=== PATIENT | female | born 1950 | race Caucasian/White ===

== ENCOUNTER → 2017-01-18 | Outpatient (CLI) | payer MEDICARE, OTHER ==
--- NOTE | 2017-01-18 15:40 | Diagnostic Imaging Report ---
Three views of the lumbar spine. INDICATION: Back pain. FINDINGS: There is satisfactory alignment of the lumbar spine. The vertebral body heights are preserved. There is moderate disc height loss and vacuum phenomenon seen at L4-L5 and L5-L6 levels. SI joints appear symmetric. There is mild right convexity curvature of the lumbar spine seen. There are multilevel anterior osteophytes. No significant posterior osteophyte is demonstrated. The paraspinal soft tissues appear grossly unremarkable. IMPRESSION: Mild right convexity scoliosis. Disc degenerative changes most prominent in the lower lumbar spine. Dictated by: Dictated on workstation # [id number]
== END ==
LOC: RAD 09:56
PROVIDERS: ATTEND Family Medicine
DX: M47.816 Spondylosis without myelopathy or radiculopathy, lumbar region (principal); M41.9 Scoliosis, unspecified
CPT/HCPCS: 72100

== ENCOUNTER → 2017-01-22 | Outpatient (CLI) | payer MEDICARE, OTHER ==
--- NOTE | 2017-01-22 17:29 | Diagnostic Imaging Report ---
Bilateral screening mammogram. The current study was also evaluated with a Computer Aided Detection (CAD) system. INDICATION: Screening. No current complaints stated on the questionnaire. COMPARISON: 01/19/16. FINDINGS: The breasts are composed of heterogeneously dense parenchyma which may decrease mammographic sensitivity. There are scattered punctate calcifications seen. Allowing for technique and positional differences, no suspicious change is seen. IMPRESSION: No significant change. ACR BI-RADS Category 2: Benign findings. Result letter will be mailed to the patient. Note: At least 10% of breast cancer is not imaged by mammography. Dictated by: Dictated on workstation # [id number]
== END ==
LOC: RAD 09:50
PROVIDERS: ATTEND Family Medicine
DX: Z12.31 Encounter for screening mammogram for malignant neoplasm of breast (principal)
CPT/HCPCS: 77067

== ENCOUNTER → 2018-07-11 | Outpatient (CLI) | payer MEDICARE, OTHER ==
--- NOTE | 2018-07-11 13:00 | Diagnostic Imaging Report ---
Indication: Routine screening. Comparison is made with prior mammogram from 01/22/2017 and 01/19/2016. 2-D and 3-D bilateral screening mammography was performed with CAD. Both breasts are heterogeneously dense, limiting the sensitivity of mammography. There is an area of questionable nodularity and architectural distortion in the lateral left breast on the CC view posterior depth. This is best seen on tomographic image 35 on the CC. Additional views are recommended. There are benign calcifications bilaterally. No malignant-appearing microcalcifications are seen. The axillae are unremarkable. Impression: BI-RADS 0 Left breast density. Additional views are recommended for further evaluation. ACR BI-RADS Category 0: Incomplete. (Needs additional imaging evaluation). Result letter will be mailed to the patient. Note: At least 10% of breast cancer is not imaged by mammography. Dictated by: Dictated on workstation # [id number]
== END ==
LOC: RAD 10:37
PROVIDERS: ATTEND Family Medicine
DX: Z12.31 Encounter for screening mammogram for malignant neoplasm of breast (principal); R92.8 Other abnormal and inconclusive findings on diagnostic imaging of breast
CPT/HCPCS: 77067

== ENCOUNTER → 2018-07-18 | Outpatient (CLI) | payer MEDICARE, OTHER ==
--- NOTE | 2018-07-18 19:04 | Diagnostic Imaging Report ---
INDICATION: Abnormal mammogram. EXAMINATION: Limited left breast ultrasound. FINDINGS: The screening mammogram performed on 07/11/2018 raised the question of a nodule with architectural distortion in the lateral aspect of the left breast. The diagnostic mammogram performed prior to this study failed to show any sign of malignancy. On this exam, there is no discrete solid or cystic mass noted. There is no shadowing to suggest malignancy either. It may be that the density seen on the mammogram was related to fibroglandular tissue alone. Even so, the fact that there did seem to be some architectural distortion in this area on the additional mammographic images is worrisome for an occult malignancy. I would recommend that MRI of the breast be performed for a more sensitive evaluation of the breast tissue for malignancy. IMPRESSION: 1. There is no evidence for malignancy. However, MRI would be recommended for further evaluation. 2. These results were discussed with Dr. Damon Denise. ACR BI-RADS Category 0: Incomplete. (Needs additional imaging evaluation). Result letter will be mailed to the patient. Note: At least 10% of breast cancer is not imaged by mammography. Dictated by: Dictated on workstation # [id number]
--- NOTE | 2018-07-18 19:11 | Diagnostic Imaging Report ---
INDICATION: Abnormal screening mammogram. EXAMINATION: Unilateral Left breast digital diagnostic mammogram with CAD. The current study was also evaluated with a Computer Aided Detection (CAD) system. FINDINGS: The screening mammogram performed on 07/11/2018 raised the question of a nodular density with architectural distortion in the superior lateral aspect of the left breast. The compression/magnification views of this area show no definite underlying abnormality. It may be that the nodular density in question is secondary to fibroglandular tissue alone. Even so, there still seems to be some architectural distortion in this area. Ultrasound would be recommended for further evaluation. IMPRESSION: There is no evidence for malignancy. Even so, ultrasound would be recommended for further evaluation. ACR BI-RADS Category 0: Incomplete. (Needs additional imaging evaluation). Result letter will be mailed to the patient. Note: At least 10% of breast cancer is not imaged by mammography. Dictated by: Dictated on workstation # [id number]
== END ==
LOC: RAD 12:42
PROVIDERS: ATTEND Family Medicine
DX: Z12.31 Encounter for screening mammogram for malignant neoplasm of breast (principal); R92.2 Inconclusive mammogram
CPT/HCPCS: 76642

== ENCOUNTER → 2018-07-24 | Outpatient (CLI) | payer MEDICARE, OTHER ==
[~2018-07-24] MED LIST: GADOBUTROL 10 MMOL/10 ML (GADAVIST) VIAL IV ONE
--- NOTE | 2018-07-25 19:25 | Diagnostic Imaging Report ---
EXAMINATION: MRI breast bilateral w/wo contrast with 3D CAD TECHNIQUE: Utilizing 1.5 Amanda magnet, patient was placed in a prone position with 8-channel dual breast coil utilized. Axial STIR precontrasted image and axial T1 fat-sat postcontrast high-resolution images obtained. Axial T2-weighted images precontrast, bilaterally, as well. Axial vibrant temporal images were obtained pre and post contrast with bolus technique utilized of gadolinium. Images are postcontrast immediately and subsequently for 6 minutes. Pre and post contrasted images are then evaluated with CADstream for evaluation of possible angiogenesis. INDICATION: Problem solving MRI. Architectural distortion seen on recent screening mammogram, with negative subsequent diagnostic workup. COMPARISON: Screening mammogram performed on 07/11/2018 and diagnostic mammogram/ultrasound performed on 07/18/2018. FINDINGS: Right Breast: The parenchyma is composed of heterogeneous fibroglandular tissue. There is minimal background enhancement. There is no suspicious mass or non-mass enhancement. There is no axillary or internal mammary adenopathy. Left Breast: The parenchyma is composed of heterogeneous fibroglandular tissue. There is minimal background enhancement. There is a subtle oval mass with slightly irregular margins in the upper central to slightly outer breast at approximately 12 o'clock, 7 cm from the nipple. The mass measures 6 x 7 x 5 mm and is below threshold on kinetic enhancement analysis. There is no axillary or internal mammary adenopathy. IMPRESSION: Right Breast: No MR evidence of malignancy. Left Breast: Subtle oval enhancing mass with irregular margins in the slightly upper central to slightly outer breast at approximately 12 o'clock. This is felt to correlate with the previously questioned area of architectural distortion on mammogram. Although below threshold on kinetic analysis, this finding is concerning for malignancy. Given that the finding is best seen on tomosynthesis, and no sonographic correlate was previously found, a tomosynthesis stereotactic-guided biopsy is recommended for further evaluation. FINAL ASSESSMENT: BI-RADS ATLAS Category: 4 - Suspicious abnormality. Dictated by: Dictated on workstation # [id number]
== END ==
LOC: RAD 14:40
PROVIDERS: ATTEND Family Medicine
DX: N63.21 Unspecified lump in the left breast, upper outer quadrant (principal); N64.89 Other specified disorders of breast
CPT/HCPCS: 36415; 77059; 82565; 84520

== ENCOUNTER → 2018-08-02 | Outpatient (CLI) | payer MEDICARE, OTHER ==
[~2018-08-02] MED LIST changes: -GADOBUTROL 10 MMOL/10 ML (GADAVIST) VIAL IV ONE; +LIDOCAINE 1% INJ 20 ML 20 ML VIAL INJ ONE
--- NOTE | 2018-08-02 13:47 | Diagnostic Imaging Report ---
Indication: Left breast density. Patient underwent screening and diagnostic mammography on 07/11 and 07/18/2018. There was a questionable area of architectural distortion and density in the lateral portion of the left breast at posterior depth. No abnormality was seen by ultrasound. Patient underwent MRI which showed questionable enhancement in this area although enhancement kinetics were unremarkable. Patient presents today for stereotactic biopsy. Repeat unilateral left 2-D and 3-D mammography was performed in the CC projection. The area of the density and questionable architectural distortion previously noted is no longer appreciated. Since the lesion is not seen, patient cannot undergo stereotactic biopsy. Impression: Previously noted questionable density in the posterior and lateral left breast on CC view is not appreciated on today's study. Therefore, stereotactic biopsy was canceled. Findings were discussed with the patient. Patient will return in approximately 6 months for repeat left mammogram to confirm stability. ACR BI-RADS Category 3: Probably benign findings. Result letter will be mailed to the patient. Note: At least 10% of breast cancer is not imaged by mammography. Dictated by: Dictated on workstation # [id number]
== END ==
LOC: RAD 09:31
PROVIDERS: ATTEND Family Medicine
DX: R92.8 Other abnormal and inconclusive findings on diagnostic imaging of breast (principal); N63.20 Unspecified lump in the left breast, unspecified quadrant

== ENCOUNTER → 2019-08-27 | Outpatient (CLI) | payer MEDICARE, OTHER ==
[~2019-08-27] MED LIST changes: +BARIUM for suspension 96% w/w (Vanilla Silq Medium Density) PO ONE; +BARIUM for suspension 98% w/w (Vanilla Silq High Density) PO ONE; -LIDOCAINE 1% INJ 20 ML 20 ML VIAL INJ ONE
--- NOTE | 2019-08-27 09:21 | Diagnostic Imaging Report ---
INDICATION: Epigastric pain. TECHNIQUE: The patient ingested effervescent crystals as well as thin and thick barium and imaging of the esophagus, stomach, and proximal small bowel was performed. A total of 1 minute and 7 seconds of fluoroscopic time was utilized. FINDINGS: Occasional tertiary contractions throughout the esophagus are noted. No discrete mass or stricture is identified. There appears to be a very large hiatal hernia. Free flow of contrast into the stomach is seen. No definite gastroesophageal reflux is identified. The stomach has a normal configuration. The duodenal bulb is without deformity. The proximal small bowel loops are unremarkable. IMPRESSION: Large hiatal hernia. No other significant abnormality is detected. Dictated by: Dictated on workstation # [id number]
== END ==
LOC: RAD 07:59
PROVIDERS: ATTEND Family Medicine
DX: K44.9 Diaphragmatic hernia without obstruction or gangrene (principal)
CPT/HCPCS: 74241

== ENCOUNTER → 2019-08-28 | Outpatient (CLI) | payer MEDICARE, OTHER ==
--- NOTE | 2019-08-28 11:01 | Diagnostic Imaging Report ---
INDICATION: Left breast architectural distortion. Correlation is made with prior exam from 07/11/2018 and 01/22/2017. 2-D and 3-D bilateral diagnostic mammography was performed with CAD. Both breasts remain heterogeneously dense, limiting the sensitivity of mammography. The area of architectural distortion in the upper and outer aspect left breast at mid to posterior depth persists. Overall appearance is stable. No mass is identified. There are no suspicious microcalcifications. There are benign calcifications bilaterally. Axillae are unremarkable. IMPRESSION: BI-RADS Category 4 Persistent architectural distortion upper outer left breast at mid to posterior depth. Stereotactic biopsy was attempted previously however this area is not well visualized with stereotactic imaging. However, patient did have abnormal MRI at this location showing abnormal enhancement. MRI guided biopsy could be performed for further evaluation. If this is unsuccessful, consideration could be given to performance of a needle localization and excisional biopsy. ACR BI-RADS Category 4: Suspicious abnormality. Result letter will be mailed to the patient. Note: At least 10% of breast cancer is not imaged by mammography. Dictated by: Dictated on workstation # [id number]
== END ==
LOC: RAD 08:54
PROVIDERS: ATTEND Family Medicine
DX: R92.2 Inconclusive mammogram (principal)
CPT/HCPCS: 77066

== ENCOUNTER 2022-02-10 15:32 | Emergency (ER) | payer MEDICARE, OTHER ==
[~2022-02-10] VITALS: Ht 165 cm; Wt 70.0 kg
--- NOTE | 2022-02-10 15:54 | ED Upper Extremity ---
General Chief Complaint: Upper Extremity Stated Complaint: K ARM PAIN Nursing Triage Note: PT TO ED W/ C/O LT ARM PAIN ONSET AFTER MISSING THE LAST STEP ON A LADDER AT HOME ET FALLING. PT DENIES HITTING HEAD BUT REPORTS SHE LANDED ON THE FLOOR ON HER ARM. DENIES LOC. NO OTHER C/O VOICED Source: patient Exam Limitations: no limitations (RALPH TURK APRN) History of Present Illness Date Seen by Provider: February 10, 2022 Time Seen by Provider: 15:53 Initial Comments Fell at home after missing the last step on a ladder attempting to catch herself on an outstretched left arm. Now c/o left wrist, elbow, shoulder pain. Onset: just prior to arrival Severity: moderate Pain/Injury Location: left shoulder, left elbow, left wrist Method of Injury: fell Modifying Factors: Worse With Movement (RALPH TURK APRN) Allergies and Home Medications Allergies Coded Allergies: No Known Drug Allergies (Unverified , 07/24/18) Patient Home Medication List Home Medication List Reviewed: Yes (RALPH TURK APRN) Review of Systems Constitutional: see HPI EENTM: see HPI Respiratory: no symptoms reported Cardiovascular: no symptoms reported Genitourinary: no symptoms reported Musculoskeletal: see HPI Skin: no symptoms reported Psychiatric/Neurological: No Symptoms Reported (RALPH TURK APRN) Physical Exam Vital Signs Vital Signs - First Documented 02/10/22 02/10/22 15:38 17:34 Temp 37.2 Pulse 89 Resp 20 B/P (MAP) 144/99 (114) Pulse Ox 96 O2 Delivery Room Air (FISH CORDOVA DO) Vital Signs Capillary Refill : Less Than 3 Seconds (RALPH TURK APRN) Height, Weight, BMI Height: '" Weight: lbs. oz. kg; 25.00 BMI Method: General Appearance: WD/WN, no apparent distress Neck: non-tender, full range of motion Respiratory: no respiratory distress, no accessory muscle use Shoulder: normal inspection, non-tender Elbow/Forearm: Left, limited ROM, pain, soft tissue tenderness Wrist: Yes limited ROM, Yes pain, Yes soft tissue tenderness Hand: normal inspection, non-tender Neurologic/Psychiatric: alert, normal mood/affect, oriented x 3 Skin: normal color, warm/dry (RALPH TURK APRN) Progress/Results/Core Measures Results/Orders Blood Pressure Mean: 114 Departure Communication (Admissions) small left elbow effusion could represent occult elbow fx. will get CT. Given posterior long arm splint using 3 inch orthoglass and sling. (RALPH TURK APRN) Impression Primary Impression: Fracture, ulna, proximal Disposition: 01 HOME, SELF-CARE Condition: Stable Departure-Patient Inst. Decision time for Depature: 16:42 (RALPH TURK APRN) Referrals: VIOLETA COOK MD (PCP/Family) Primary Care Physician SAM ALEMAN MD, TERRY D MD ZAFUTA, MICHAEL P MD Patient Instructions: Elbow Fracture, Adult ED Add. Discharge Instructions: . Ice pack to the area. REturn to RE for any concerns. Keep the splint on at all times and wear the sling as well. Keep this dry. Follow up with orthopedics within the next 1-2 weeks. Call an orthopedic surgeon of your choosing on Sunday to make an appointment to be seen. All discharge instructions reviewed with patient and/or family. Voiced understanding. ATTENDING PHYSICIAN NOTE: I WAS PHYSICALLY PRESENT ER PHYSICIAN, BUT I WAS NOT INVOLVED IN ANY DECISION MAKING OR ANY CARE OF THIS PATIENT. (FISH CORDOVA DO) RALPH TURK APRN February 10, 2022 15:54 FISH CORDOVA DO February 11, 2022 06:12
--- NOTE | 2022-02-10 16:12 | Diagnostic Imaging Report ---
INDICATION: Fall with left wrist pain. FINDINGS: Three views. Radiocarpal joint shows good alignment. Articulating surfaces are smooth. Joint spaces are well maintained. No fractures. IMPRESSION: Normal left wrist. Dictated by: Dictated on workstation # [id number]
--- NOTE | 2022-02-10 16:14 | Diagnostic Imaging Report ---
INDICATION: Fall with left elbow pain. FINDINGS: Three views. The elbow shows good alignment of the radius and ulna. There is a small joint effusion noted. No definite fractures are seen. IMPRESSION: Small joint effusion with no definite cortical bony fractures demonstrated. Dictated by: Dictated on workstation # [id number]
--- NOTE | 2022-02-10 16:15 | Diagnostic Imaging Report ---
INDICATION: Left shoulder pain. FINDINGS: Three views. The glenohumeral joint and AC joint are in good alignment. Joint spaces are well maintained with smooth humeral head. No hypertrophic changes are seen. There are no fractures. No soft tissue calcifications about the shoulder. IMPRESSION: Normal left shoulder. Dictated by: Dictated on workstation # [id number]
--- NOTE | 2022-02-10 16:49 | Diagnostic Imaging Report ---
PROCEDURE: CT left upper extremity without contrast. TECHNIQUE: Multiple contiguous axial images were obtained through the left upper extremity without the use of intravenous contrast. Auto Exposure Controls were utilized during the CT exam to meet ALARA standards for radiation dose reduction. INDICATION: Left arm pain after trauma. Pain in the elbow. COMPARISON: Radiographs from the same day. FINDINGS: There is a minimally displaced fracture of the coronoid process of the ulna. There is a small avulsion fracture at the posterior aspect of the capitellum. There is a moderate elbow joint effusion. No other fractures are seen. No soft tissue fluid collections are seen. No radiopaque foreign body is identified. No focal muscular atrophy is seen. IMPRESSION: 1. Minimally displaced fracture of the coronoid process of the left ulna. 2. Displaced avulsion fracture at the posterior capitellum. Dictated by: Dictated on workstation # [id number]
[2022-02-10 17:34] VITALS: BP 144/99
== END 2022-02-10 17:36 | disposition home or self-care (01) ==
LOC: EDUNIT# 15:32 → ER 15:35
DX: S52.042A Displaced fracture of coronoid process of left ulna, initial encounter for closed fracture (principal); W11.XXXA Fall on and from ladder, initial encounter; Y92.009 Unspecified place in unspecified non-institutional (private) residence as the place of occurrence of the external cause
CPT/HCPCS: 29105; 73030; 73080; 73110; 73200

== ENCOUNTER 2023-04-16 13:10 | Emergency (ER) | payer MEDICARE, OTHER ==
[~2023-04-16] VITALS: Ht 165.1 cm; Wt 75.0 kg
--- NOTE | 2023-04-16 13:38 | ED Upper Extremity ---
General Chief Complaint: Upper Extremity Stated Complaint: FALL | LT ARM INJ Nursing Triage Note: PT AMB TO ED BY POV WITH C/O L ARM INJURY. PT REPORTS SHE TRIPPED AND FELL WHILE WALKING HER DOG APPROX 2 HRS AGO. PAIN IS PRIMARILY FROM L ELBOW TO SHOULDER. Source: patient Exam Limitations: no limitations (DENNY VELA) History of Present Illness Date Seen by Provider: Apr 16, 2023 Time Seen by Provider: 13:35 Initial Comments Patient is a 73-year-old female presents ED with left elbow injury. Patient states she tripped and fell around 11:00 this morning. She states she was about a block away from her house where the concrete meets the asphalt. She fell forward landing on her left wrist and left elbow. She fractured left elbow 1 year ago. She denies hitting her head or loss of conscious or blood thinners. She does report normal range of motion of the wrist but concerning for pain to her left elbow especially with full extension. She reports abrasion to the right knee without any specific pain. Small abrasion to the right wrist but no pain with movement. She took 2 Tylenol just a few hours before arrival. She denies chest pain, neck pain, middle lower back pain, bowel or urine incontinence, saddle paresthesia, headache, dizziness, shortness of breath. Up-to-date on immunizations (DENNY VELA) Allergies and Home Medications Allergies Coded Allergies: No Known Drug Allergies (Unverified , 07/24/18) Patient Home Medication List Home Medication List Reviewed: Yes (DENNY VELA) Hydrocodone/Acetaminophen (Hydrocodone-Acetamin 5-325 mg) 5 Mg-325 Mg Tablet, 1 TAB PO Q4H PRN for PAIN-MODERATE (5-7) Prescribed by: SILVA VICENTE on 04/16/23 4341 Review of Systems Constitutional: No chills, No diaphoresis, No malaise, No weakness EENTM: No blurred vision Respiratory: No dyspnea on exertion Cardiovascular: No edema Gastrointestinal: No abdominal pain, No nausea, No vomiting Genitourinary: No decreased output, No discharge Musculoskeletal: No back pain; joint pain, joint swelling, muscle pain Skin: change in color; No change in hair/nails; other (skin abrasions) (DENNY VELA) All Other Systems Reviewed Negative Unless Noted: Yes (DENNY VELA) Past Yrciayc-Zsewil-Pautpc Hx Patient Social History Tobacco Use?: No Use of E-Cig and/or Vaping dev: No Substance use?: No Alcohol Use?: No Pt feels they are or have been: No (DENNY VELA) Immunizations Up To Date Influenza Vaccine Up-to-Date: No; Not Current First/Initial COVID19 Vaccinat: X3 (DENNY VELA) Past Medical History Surgery/Hospitalization HX: BREAST CA, GLAUCOMA (DENNY VELA) Physical Exam Vital Signs Vital Signs - First Documented 04/16/23 13:15 Pulse 98 Resp 16 B/P (MAP) 152/90 (110) Pulse Ox 98 O2 Delivery Room Air (RESHMA RECIO MD) Vital Signs Capillary Refill : Less Than 3 Seconds (DENNY VELA) Height, Weight, BMI Height: '" Weight: lbs. oz. kg; 27.00 BMI Method: General Appearance: WD/WN, no apparent distress HEENT: PERRL/EOMI, normal ENT inspection, TMs normal, pharynx normal Neck: non-tender, full range of motion, supple Cardiovascular: regular rate, rhythm, no edema, no gallop, no JVD Respiratory: chest non-tender, lungs clear, normal breath sounds, no respiratory distress, no accessory muscle use Gastrointestinal: normal bowel sounds, non tender, soft, no organomegaly Back: normal inspection, no CVA tenderness, no vertebral tenderness Shoulder: normal inspection, non-tender, no evidence of injury Elbow/Forearm: limited ROM (Limited full extension of the mild tenderness to the left or not in left elbow. Supination pronation intact. No obvious swelling or bruising. Distal left elbow), pain Wrist: Yes normal inspection, Yes non-tender, Yes ecchymosis (Right volar wrist. Normal active range of motion. Neurovascular intactStrength out of 5 bilateral. No point tenderness.) Hand: normal inspection, non-tender, no evidence of injury, normal ROM, Right, Left Neurologic/Tendon: other (Normal active range of motion right anterior knee. No pain with valgus or varus stress. Negative anterior posterior drawer test.) Neurologic/Psychiatric: manager mba II-XII nml as tested, no motor/sensory deficits, alert, normal mood/affect, oriented x 3 Skin: other (Abrasion to right knee with no tenderness.) Lymphatic: no adenopathy (DENNY VELA) Procedures/Interventions Splinting and Joint Reduction : Pre-Proc Neuro Vasc Exam: normal Post-Proc Neuro Vasc Exam: normal Progress left elbow posterior long arm Pre-Procedure NV Exam: Yes Progress sling. Neurovascularly pre and post splint Hand-Made Type: orthoglass Splint Application: Long Arm (DENNY VELA) Progress/Results/Core Measures Results/Orders Medications Given in ED Current Medications Medications Dose Ordered Sig/Erwin Route Start Time Stop Time Status Last Admin Dose Admin Acetaminophen/ Hydrocodone Bitart 1 ea ONCE ONCE PO 04/16/23 15:30 04/16/23 15:26 DC 04/16/23 15:26 1 EA (RESHMA RECIO MD) Vital Signs/I&O 04/16/23 04/16/23 13:15 15:13 Pulse 98 95 Resp 16 B/P (MAP) 152/90 (110) 150/89 Pulse Ox 98 97 O2 Delivery Room Air Room Air (RESHMA RECIO MD) Blood Pressure Mean: 110 Departure Communication (PCP) Patient is a 73-year-old female who presents ED with a mechanical fall. She tripped and fell while walking her dog hitting the asphalt about a block away from her house. She denies hitting her head or loss of consciousness. Landed out extended out hands complaining of left elbow pain. She did hit her left elb ow on the ground. Previous fracture 1 year ago from this previous February. Patient reports normal range of motion of her hands and wrist. She is complaining of left elbow pain difficult with full extension. No significant swelling or bruising but does have limited extension and pain with supination. No wrist tenderness. No snuffbox tenderness. Refused x-rays of the wrist. She does have abrasion to her right knee without any tenderness. Able to ambulate. X- ray was ordered of the left elbow secondary to her pain. X-ray shows ossification adjacent to the coracoid process which may reflect a displaced fracture fragment. Large elbow joint effusion. No evidence of dislocation. Irregularity in the region of the sublime tubercle which may be result of a fr acture. Due to a potential fracture with a joint effusion patient was placed in a long-arm posterior splint with a sling. Neurovascularly pre and post splint. Up-to-date on her tetanus. She did receive a dose of Toradol. Recommend orthopedic follow-up in 7 to 10 days for reevaluation. Discussed wound care. Avoid getting the splint wet. If increasing pain, skin color changes of her left hand to return back to ED. Discharged with a few days worth hydrocodone. She is not on blood thinners. Discussed ibuprofen to help with pain and swelling. If increasing pain of the wrist may warrant x-ray however she refused imaging at this time. Once again she had no point tenderness (DENNY VELA) Impression Primary Impression: Elbow fracture Disposition: HOME, SELF-CARE Condition: Stable Departure-Patient Inst. Decision time for Depature: 14:38 (DENNY VELA) Referrals: VIOLETA COOK MD (PCP/Family) Primary Care Physician SAM ALEMAN MD Patient Instructions: Elbow Fracture, Adult ED Add. Discharge Instructions: Keep the arm in a splint. Sling for comfort. Take hydrocodone as needed. May consider taking Aleve for pain and swelling as well. Recommend eating with medication. All discharge instructions reviewed with patient and/or family. Voiced understanding. Scripts Hydrocodone/Acetaminophen (Hydrocodone-Acetamin 5-325 mg) 5 Mg-325 Mg Tablet 1 TAB PO Q4H PRN for PAIN-MODERATE (5-7), #10 TAB Prov: DENNY VELA 04/16/23 ATTENDING PHYSICIAN NOTE: I was physically present as attending physician in the emergency department during the care of this patient, but I was not directly involved in the decision making or delivery of care for this patient. (RESHMA RECIO MD) DENNY VELA Apr 16, 2023 13:38 RESHMA RECIO MD Apr 16, 2023 21:10
--- NOTE | 2023-04-16 14:16 | Diagnostic Imaging Report ---
EXAMINATION: Left elbow radiographs, 3 views. COMPARISON: Left hip radiographs February 10, 2022. HISTORY: 73-year-old female, left elbow pain. Fall. FINDINGS: There is a large elbow joint effusion. There is an ossification projecting near the coracoid which is new since the comparison exam, likely relating to a fracture fragment. There is also some irregularity in the region of the sublime tubercle of the proximal ulna. The elbow is not currently dislocated. IMPRESSION: 1. Ossification adjacent to the coracoid process which may reflect a displaced fracture fragment. 2. Large elbow joint effusion. 3. The elbow is not dislocated. 4. Irregularity in the region of the sublime tubercle. A fracture at this location could not be excluded. Dictated by: Dictated on workstation # [id number]
[2023-04-16] MEDS ORDERED: ACHD5005 PO (14:40)
[2023-04-16 15:13] VITALS: BP 150/89
== END 2023-04-16 15:25 | disposition home or self-care (01) ==
LOC: EDUNIT# 13:10 → ER 13:12
DX: S42.132A Displaced fracture of coracoid process, left shoulder, initial encounter for closed fracture (principal); S80.211A Abrasion, right knee, initial encounter; S60.811A Abrasion of right wrist, initial encounter; W01.198A Fall on same level from slipping, tripping and stumbling with subsequent striking against other object, initial encounter; Y93.01 Activity, walking, marching and hiking
CPT/HCPCS: 73080; 99282; A4565